=== PATIENT | female | born 1985 | race Caucasian/White ===

== ENCOUNTER → 2025-05-25 13:40 | Outpatient (BNVA) | payer MEDICAID, SELFPAY | PROVIDERS: Visit Provider Family Medicine | DX: J45.20 Mild intermittent asthma, uncomplicated (principal); R01.1 Cardiac murmur, unspecified; M54.50 Low back pain, unspecified; R79.89 Other specified abnormal findings of blood chemistry; M25.50 Pain in unspecified joint | CPT/HCPCS: 80053; 80061; 84443; 85025; 85651; 86140 ==

== ENCOUNTER → 2025-06-03 15:00 | Outpatient (BNVA) | payer MEDICAID, SELFPAY | PROVIDERS: Visit Provider Nurse Practitioner Family | DX: Z12.4 Encounter for screening for malignant neoplasm of cervix (principal) | CPT/HCPCS: 88175 ==

== ENCOUNTER 2025-06-24 08:20 | Outpatient (CLI) | payer MEDICAID, SELFPAY ==
--- NOTE | 2025-06-24 08:30 | USCV_ITS ---
Dena Villegas Age: 39 Gender: F : 1985 Exam Date: 06/24/2025 08:50 Ordering Phys: Mack Braxton DO Technologist: Devin Lan Exam Location: [facility] Indication: cadiac murmur BP: 149 / 87 HR: 62 Rhythm: Sinus Technical Quality: Adequate MEASUREMENTS (Male / Female) Normal Values 2D ECHO LV Systolic Diameter PLAX 4.0 cm IVS Systolic Thickness 1.0 cm LVPW Systolic Thickness 1.3 cm LVOT Diameter 2.0 cm LV Ejection Fraction MOD 4C 68.3 % LV Ejection Fraction MOD 2C 64.0 % LV Ejection Fraction 2C AL 65.8 % LA Diameter 3.5 cm RA Systolic Volume 4C AL 26.8 ml RA Systolic Volume 4C MOD 26.7 ml LA Sys Volume AL 52.8 cm cubed LA Sys Volume Index AL 29.6 cm cubed/m squared Aorta at Sinotubular Diameter 2.3 cm IVC Diameter 2.1 cm M-MODE LA Ao Ratio MM 1.2 AV Cusp Separation MM 1.7 cm DOPPLER AV Peak Velocity 244.0 cm/s LVOT Peak Velocity 120.0 cm/s AV Area Cont Eq vti 1.6 cm squared AV Area Cont Eq pk 1.5 cm squared MV Peak Velocity 100.0 cm/s MV Area PHT 4.4 cm squared Mitral E to A Ratio 1.4 TR Peak Velocity 3.0 cm/s TR Peak Gradient 37.0 mmHg TR Mean Gradient 24.0 mmHg PV Peak Velocity 86.3 cm/s RV Ejection Time 0.3 s FINDINGS Left Ventricle Normal left ventricular size, systolic function and wall thickness, with no regional wall motion abnormalities. Normal left ventricular size and systolic function, EF 65% . Normal left ventricular diastolic function Right Ventricle Normal right ventricular size. Normal right ventricular systolic function. Right Atrium Normal right atrial size. Left Atrium Normal left atrial size. Mitral Valve Structurally normal mitral valve. No mitral valve stenosis. Trace mitral valve regurgitation. Aortic Valve Aortic valve structure not well visualized. Mild aortic valve regurgitation. Doppler consistent with mild aortic valve stenosis. LVOT/AV velocity ratio 0.58, GURPREET 1.5 cm2. Consider transesophageal echocardiogram to better visualize the aortic valve. Tricuspid Valve Structurally normal tricuspid valve. Trace tricuspid valve regurgitation. Mild pulmonary hypertension with a PASP of 40 mmHg. Pulmonic Valve Trace pulmonary valve regurgitation. Pericardium No pericardial effusion. Aorta Normal size aortic root and proximal ascending aorta. IVC Normal inferior vena cava. CONCLUSIONS 1. Normal left ventricular size and systolic function, EF 65% 2. Mild aortic valve stenosis and mild aortic valve regurgitation. Structure of the aortic valve was not well- visualized. If clinically indicated, consider transesophageal echocardiogram for better visualization of the aortic valve. 3. Mild pulmonary hypertension, pulmonary artery systolic pressure 40 mmHg Power Kelley MD, FACC (Electronically Signed) Final Date: 24 June 2025 11:59 S
--- NOTE | 2025-06-24 11:30 | US_ITS ---
WS: [id number] US pelv w/transvag [id number] HISTORY: N92.0 - Excessive and frequent menstruation with regular ... COMPARISON: None available. Uterus: 8.4 cm x 4.9 cm x 4.3 cm. Uterus is retroverted on transvaginal imaging.. Mild heterogeneity in the myometrium. No fibroid. Endometrium: 0.9 cm. No mass or increased vascularity. Right ovary: 2.1 cm x 2.1 cm x 2.5 cm. Normal size and vascularity, no cystic or solid masses. Left ovary: 3.3 cm x 4.8 cm x 3.5 cm. Normal size and vascularity, no cystic or solid masses. Simple cyst associated with the LEFT ovary measures 2.5 x 3.0 x 4.0 cm. No free fluid in the cul-de-sac. US/US pelv w/transvag [id number] IMPRESSION: 1. O RADS 2; almost certainly benign. LEFT ovarian cyst. No follow-up necessar y. 2. Normal endometrium.
== END 2025-06-24 08:21 | disposition home or self-care (01) ==
LOC: RAD 08:21
PROVIDERS: PCP Family Medicine; Visit Provider Family Medicine
DX: R01.1 Cardiac murmur, unspecified (principal); N92.0 Excessive and frequent menstruation with regular cycle; I35.2 Nonrheumatic aortic (valve) stenosis with insufficiency; I27.20 Pulmonary hypertension, unspecified; N85.4 Malposition of uterus; N83.202 Unspecified ovarian cyst, left side
CPT/HCPCS: 76830; 76856; 93306